=== PATIENT | female | born 1990 | race Caucasian/White ===

== ENCOUNTER 2024-05-01 21:42 | Inpatient (IN) | payer OTHER ==
[2024-05-01] MEDS ORDERED: CARBOPROST TROMETHAMINE 250 MCG/ML 1 ML AMP IM PRN (22:43)
[2024-05-01] MEDS ORDERED: TRANEXAMIC 1,000 MG/100ML-NACL 1,000 MG in EMPTY BAG 1 BAG IV PRN (22:43)
[2024-05-01] MEDS ORDERED: OXYTOCIN 10 UNIT/ML 1 ML VIAL IM PRN (22:43)
[2024-05-01] MEDS ORDERED: miSOPROStoL 200 MCG TAB RECTAL PRN (22:43)
[2024-05-01] MEDS ORDERED: METHYLERGONOVINE 0.2 MG/ML 1 ML AMP IM PRN (22:43)
[2024-05-01] MEDS ORDERED: miSOPROStoL 200 MCG TAB PO PRN (22:43)
[2024-05-01] MEDS ORDERED: TERBUTALINE 1 MG/ML VIAL SQ PRN (22:43)
[2024-05-01] MEDS: LACTATED RINGERS 1,000 ML IV SCH (23:04)
[2024-05-01 23:09] LABS: Glucose,Whole Blood 105 mg/dL (70-110)
[2024-05-01 23:12] LABS: HCT 40.9 % (34.0-46.0); HGB 13.7 gm/dL (11.4-16.0); MCH 31.7 pg (25.0-35.0); MCHC 33.4 g/dL (31.0-37.0); MCV 94.8 fL (80.0-100.0); Mean Platelet Volume 12.1; Platelet Count 157 k/uL (150-450); RBC 4.31 m/uL (3.80-5.40); RDW 12.3 % (11.5-15.5); WBC 14.7 k/uL (3.8-10.6)
[2024-05-01] MEDS ORDERED: fentaNYL (PF) 50 MCG/ML 5 ML AMP ONE (23:25)
[2024-05-01] MEDS ORDERED: ROPIVACAINE 5 MG/ML 30 ML VIAL ONE (23:25)
[2024-05-01] MEDS ORDERED: SODIUM CHLORIDE 0.9% 250 ML BAG ONE (23:25)
[2024-05-01 23:35] LABS: Band Neutrophils % 4 %; Eosinophils # (M) 0.29 k/uL (0-0.7); Large Platelets Present; Lymphocytes # (M) 0.74 k/uL (1.0-4.8); Monocytes # (M) 0.74 k/uL (0-1.0); Neutrophils % (M) 84 %; Nucleated Red Blood Cells 0 /100 WBC (0-0); RBC Morphology Normal; Total Cells Counted 100
[2024-05-02] MEDS: LIDOCAINE 0.5% (PF) 5 MG/ML (50 ML SDV) SQ PRN (01:08)
[2024-05-02] MEDS: OXYTOCIN 30 UNITS/500 ML NS 30 UNIT in SALINE 1 500ML.BAG IV SCH (01:09)
--- NOTE | 2024-05-02 01:20 | P.HPOB ---
History of Present Illness H&P Date: 05/02/24 Chief Complaint: contractions Ms. Barnes is a 33 year old at 39 weeks and 4 days gestation with EDC of 05/03/2024 by LMP consistent with 10 week US who presents to L&D in labor. has been essentially uncomplicated. Of note, she did not complete her 1 hour GTT due to a corn allergy. The patient has been checking blood sugars four times daily, which have been normal. Obstetric history: 1 FTVD history: blood type O positive, antibody screen negative, rubella immune, VDRL non-reactive, HBsAg negative, HIV negative, HCV negative, gonorrhea negative, chlamydia negative, GBS negative. s/p flu and TDap vaccines. Past Medical History Past Medical History: Skin Disorder Additional Past Medical History / Comment(s): IBS. Vitiligo. "My dentist said my teeth show signs of acid reflux but I have no symptoms of acid reflux." History of Any Multi-Drug Resistant Organisms: None Reported Additional Past Surgical History / Comment(s): [place] teeth extracted. Past Anesthesia/Blood Transfusion Reactions: Motion Sickness, No Reported Reaction Smoking Status: Never smoker - Past Family History Mother Family Medical History: No Reported History Medications and Allergies Home Medications Medication Instructions Recorded Confirmed Type Pnv No.95/Ferrous Fum/Folic AC 1 each PO HS 07/17/21 05/01/24 History [ Multivitamin Tablet] Aspirin [Adult Low Dose Aspirin EC] 81 mg PO DAILY 05/01/24 05/01/24 History Calcium Carbonate [Tums] 500 mg PO QID PRN 05/01/24 05/01/24 History Omeprazole [PriLOSEC] 20 mg PO AC-BRKFST 05/01/24 05/01/24 History Allergies Allergy/AdvReac Type Severity Reaction Status Date / Time corn Allergy Nausea & Verified 04/09/24 11:19 Vomiting & Diarrhea [place] Derivitives Allergy Nausea & Uncoded 04/09/24 11:19 Vomiting & Diarrhea Exam Intake and Output 05/01/24 05/01/24 05/02/24 14:59 22:59 06:59 Other: Weight 72.575 kg Focused physical exam is performed. This is a healthy-appearing in no apparent distress. Breathing is non-labored. Abdomen is gravid and non-tender. Cervical exam is 10/100/0. AROM is undertaken with clear fluid noted. Extremities non-tender and non-edematous. heart tones are Category I and tocometer is graphing contractions every 2-4 minutes. Results Result Diagrams: 05/01/24 22:55 Abnormal Lab Results - Last 24 Hours (Table) 05/01/24 Range/Units 22:55 WBC 14.7 H (3.8-10.6) k/uL Neutrophils # (Manual) 12.90 H (1.3-7.7) k/uL Lymphocytes # (Manual) 0.74 L (1.0-4.8) k/uL Assessment and Plan Assessment: 33 year old at 39 weeks and 4 days presenting in labor Plan: Admit, clear liquid diet, continuous EFM and tocometer, epidural. Anticipate vaginal delivery.
[2024-05-02] MEDS ORDERED: diphenhydrAMINE 25 MG CAP PO PRN (01:26)
[2024-05-02] MEDS ORDERED: ZOLPIDEM 5 MG TAB PO PRN (01:26)
[2024-05-02] MEDS ORDERED: HYDROCORTISONE 2.5% RECTAL CREAM 30 GM TUBE RECTAL PRN (01:26)
[2024-05-02] MEDS ORDERED: diphenhydrAMINE 50 MG CAP PO PRN (01:26)
[2024-05-02] MEDS ORDERED: diphenhydrAMINE 50 MG/ML 1 ML VIAL IVP PRN ×2 (01:26)
[2024-05-02] MEDS ORDERED: SIMETHICONE 80 MG CHEWABLE PO PRN (01:26)
[2024-05-02] MEDS ORDERED: LANOLIN CREAM 1 GM TUBE TOPICAL PRN (01:26)
--- NOTE | 2024-05-02 01:26 | P.PROBDLV ---
Vaginal Delivery Note - . Vaginal Delivery Note: DATE OF SERVICE: 05/02/2024 PROCEDURE: Normal Vaginal Delivery ATTENDING: Dr. Shante Peters MD ESTIMATED BLOOD LOSS: 100 mL FINDINGS: VMI, Apgars 8/9. Weight 7 pounds and 0 ounces (3180 grams) PROCEDURE: Mrs. Barnes is a 33 year old at 39 weeks and 4 days presenting to labor and delivery in active labor. The has been uncomplicated. For further details, please review the admitting H&P. The patient received epidural anesthesia per her request. The patient was completely dilated at 2342. AROM was undertaken shortly after. She pushed effectively with Category I to II FHTs. A viable male was delivered at 0055. The infant was placed on the maternal abdomen and bulb suctioned. The infant was noted to be spontaneously crying. Cord was clamped and cut after a 60-second delay. The infant was handed off to the pediatric team. Placenta was delivered whole with gentle cord traction at 0058. Oxytocin was started to facilitate uterine tone. Uterine fundus was found to be firm and below the umbilicus upon fundal massage. Thorough examination of the cervix, vagina, periurethral area, and perineum revealed a mily-clitoral laceration. This area was infiltrated with lidocaine and repaired with 3-0 Vicryl in an interrupted fashion. The patient is stable and allowed to begin the bonding process.
[2024-05-02] MEDS: BENZOCAINE/MENTHOL SPRAY 1 GM/SPRAY AEROSOL TOPICAL PRN (01:32)
[2024-05-02] MEDS: IBUPROFEN 800 MG TAB PO SCH (04:17)
[2024-05-02] MEDS: ACETAMINOPHEN TAB 500 MG TAB PO SCH (09:04)
[2024-05-02] MEDS: SENNOSIDES-DOCUSATE SODIUM 1 EACH TAB PO SCH (09:05)
[2024-05-03 06:38] LABS: Basophils % (A) 0 %; Eosinophils # (A) 0.4 k/uL (0-0.7); Eosinophils % (A) 4 %; HCT 36.5 % (34.0-46.0); Lymphocytes # (A) 2.2 k/uL (1.0-4.8); Lymphocytes % (A) 21 %; MCH 31.1 pg (25.0-35.0); MCHC 32.8 g/dL (31.0-37.0); Mean Platelet Volume 10.9; Monocytes # (A) 0.5 k/uL (0-1.0); Monocytes % (A) 5 %; Neutrophils # (A) 7.1 k/uL (1.3-7.7); Neutrophils % (A) 68 %; Platelet Count 135 k/uL (150-450); RBC 3.85 m/uL (3.80-5.40); RDW 12.5 % (11.5-15.5); WBC 10.4 k/uL (3.8-10.6)
--- NOTE | 2024-05-03 09:06 | P.DS ---
Providers Date of admission: 05/01/24 22:47 Expected date of discharge: 05/03/24 Attending physician: Patricio Serra Primary care physician: Stated None - Discharge Diagnosis(es) (1) Normal spontaneous vaginal delivery Current Visit: No Status: Acute Hospital Course: Patient is a 33-year-old 3 para 1-0-1-1 admitted at 39-4/7 by good dating parameters. She is admitted in active labor with all signs reassuring, category 1 heart rate tracing. Her was entirely uncomplicated and group B strep status is negative. On labor and delivery, she had an epidural catheter placed for analgesia. She progressed to complete and underwent artificial rupture of membranes. She pushed effectively to a normal spontaneous vaginal delivery of a viable 7 pound 0 ounce baby boy with Apgars of 8 at 1 minute and 9 at 5 minutes. Her course was unremarkable with vital signs remaining stable and her temperature was afebrile throughout. She was deemed stable for discharge on day #1 and was discharged home to follow-up in the office in 6 weeks time routinely. Discharge instructions included calling for any significantly increased bleeding or foul-smelling lochia, significantly increased fever abdominal pain, perineal complaints, breast complaints, or anything else that concerned her. She was additionally instructed to have nothing in the vagina for at least 6 weeks time to include intercourse. She understood her instructions and agrees to follow-up as noted above. Discharge medications included continued vitamins as well as [id number] analgesic pain medications. Maternal blood type is O+ and rubella status is immune. Procedures: #1. Epidural analgesia #2. Artificial rupture of membranes #3. Normal spontaneous vaginal delivery #4. Repair of perineal laceration Patient Condition at Discharge: Stable Plan - Discharge Summary New Discharge Prescriptions: No Action Pnv No.95/Ferrous Fum/Folic AC [ Multivitamin Tablet] 1 each PO HS Aspirin [Adult Low Dose Aspirin EC] 81 mg PO DAILY Omeprazole [PriLOSEC] 20 mg PO AC-BRKFST Calcium Carbonate [Tums] 500 mg PO QID PRN PRN Reason: Heartburn Discharge Medication List Pnv No.95/Ferrous Fum/Folic AC [ Multivitamin Tablet] 1 each PO HS 07/17/21 [History] Aspirin [Adult Low Dose Aspirin EC] 81 mg PO DAILY 05/01/24 [History] Calcium Carbonate [Tums] 500 mg PO QID PRN 05/01/24 [History] Omeprazole [PriLOSEC] 20 mg PO AC-BRKFST 05/01/24 [History] Follow up Appointment(s)/Referral(s): Patricio Serra MD [STAFF PHYSICIAN] - 6 Weeks Discharge Disposition: HOME SELF-CARE
[2024-05-03 09:26] VITALS: BP 113/74; PULSE 95; RESP 14; TEMP 97.5
== END 2024-05-03 11:50 | disposition home or self-care (01) | DRG 807 ==
LOC: FBPOP 21:42 → 4FBP 22:47
PROVIDERS: ADMIT Obstetrics & Gynecology; ATTEND Obstetrics & Gynecology
PROC: 10E0XZZ Delivery of Products of Conception, External Approach (ICD-10-PCS; principal; 2024-05-02)
PROC: 10907ZC Drainage of Amniotic Fluid, Therapeutic from Products of Conception, Via Natural or Artificial Opening (ICD-10-PCS; principal; 2024-05-02)
PROC: 3E033VJ Introduction of Other Hormone into Peripheral Vein, Percutaneous Approach (ICD-10-PCS; principal; 2024-05-02)
PROC: 0UQMXZZ Repair Vulva, External Approach (ICD-10-PCS; principal; 2024-05-02)
PROC: 4A0HXCZ Measurement of Products of Conception, Cardiac Rate, External Approach (ICD-10-PCS; principal; 2024-05-02)
DX: O71.82 Other specified trauma to perineum and vulva (principal); Z37.0 Single live birth; K58.9 Irritable bowel syndrome, unspecified; O76 Abnormality in fetal heart rate and rhythm complicating labor and delivery; O99.62 Diseases of the digestive system complicating childbirth; O99.72 Diseases of the skin and subcutaneous tissue complicating childbirth; L80 Vitiligo; Z3A.39 39 weeks gestation of pregnancy; Z79.82 Long term (current) use of aspirin; Z91.018 Allergy to other foods
CPT/HCPCS: 59025; 85025; 86850; 86900; 86901; 99213